=== PATIENT | male | born 1950 | race Two or more races ===

== ENCOUNTER 2022-08-17 06:42 | Inpatient (IN) | payer OTHER ==
[~2022-08-17] VITALS: Ht 160 cm; Wt 54.4 kg
[2022-08-23] MEDS ORDERED: HYOSCYAMINE0.125 M1 SL (08:33)
[2022-08-23] MEDS ORDERED: PEPCID AC20 MG PO (08:33)
[2022-08-23] MEDS ORDERED: TRAM1TAB98 PO (08:33)
== END 2022-08-23 10:38 | disposition home or self-care (01) | DRG 330 ==
LOC: ER 06:42 → SURG 12:33 → SURH 12:33 → MEDI 14:36 → SURH 15:14
PROVIDERS: ADMIT Surgery; ATTEND Surgery
PROC: BW21ZZZ Computerized Tomography (CT Scan) of Abdomen and Pelvis (ICD-10-PCS; 2022-08-17)
PROC: 07BC4ZZ Excision of Pelvis Lymphatic, Percutaneous Endoscopic Approach (ICD-10-PCS; 2022-08-20)
PROC: 0FB04ZX Excision of Liver, Percutaneous Endoscopic Approach, Diagnostic (ICD-10-PCS; 2022-08-20)
PROC: 0DTG4ZZ Resection of Left Large Intestine, Percutaneous Endoscopic Approach (ICD-10-PCS; principal; 2022-08-20 16:00)
DX: C18.4 Malignant neoplasm of transverse colon (principal); C22.0 Liver cell carcinoma; K56.690 Other partial intestinal obstruction